=== PATIENT | female | born 1960 | race Caucasian/White ===

== ENCOUNTER → 2024-04-28 08:09 | Outpatient (REF) | payer BC, SELFPAY | LOC: EMG 08:09 | PROVIDERS: ATTENDING PHYSICIAN Orthopaedic Surgery Hand Surgery | DX: M25.511 Pain in right shoulder (principal) | CPT/HCPCS: 95886; 95909 ==

== ENCOUNTER → 2024-06-02 06:49 | Outpatient (REF) | payer BC, SELFPAY | LOC: RAD 06:49 | DX: R06.09 Other forms of dyspnea (principal); Z80.1 Family history of malignant neoplasm of trachea, bronchus and lung | CPT/HCPCS: 71260; Q9967 ==

== ENCOUNTER → 2024-09-01 07:14 | Outpatient (REF) | payer BC, SELFPAY | LOC: RAD 07:14 | DX: R91.8 Other nonspecific abnormal finding of lung field (principal) | CPT/HCPCS: 71260; Q9967 ==

== ENCOUNTER → 2024-12-12 16:35 | Outpatient (REF) | payer BC, SELFPAY | LOC: RAD 16:35 | DX: R91.1 Solitary pulmonary nodule (principal) | CPT/HCPCS: 71250 ==